=== PATIENT | female | born 1960 | race Caucasian/White ===

== ENCOUNTER 2017-01-12 14:34 | Inpatient (IN) | payer OTHER ==
[~2017-01-12] VITALS: Ht 165.1 cm; Wt 57.8 kg
[2017-01-12] VITALS (19 sets, daily range): BP systolic 90–125; BP diastolic 34–71
--- OUTSIDE RECORDS SUMMARY | 2017-01-12 15:07 | External Medical Summary Rpt | CCD ---
Author Author , TERE Organization TERE Address Unknown Phone [email or web address] Purpose Continuity of Care Document - 01-12-2017 through 2016 Results Labs Lab Lab Date Result Refere Interp Status Commen Order Detail nces retati t Range on CBC w auto diff (01-12-2017 09:43) Automat = 0.0 0-0.2 complet ed 017 K/MM3 ed blood 09:43 basophi l count (count/ vo Baso % = 0.5 % 0.1-2.0 complet 017 ed 09:43 Automat = 0.1 0.0-0.4 complet ed 017 K/mm3 ed blood 09:43 eosinop hil count Automat = 1.0 % 0.1-12. complet ed 017 0 ed blood 09:43 eosinop hils/10 0 leukocy t Blood = 4.1 1.8-7.8 complet granulo 017 K/mm3 ed cytes 09:43 automat ed count (numb Granulo = 60.1 37.0-80 complet cyte 017 % .0 ed percent 09:43 age Blood = 19.7 37.0-47 complet hematoc 017 % .0 ed rit 09:43 (volume fractio n) Comment: CRITICAL RESULTS Comment: RESULTS CALLED TO: HERO CASTRO Comment: 01/12/17 1358 KhalidaBobbi Blood = 5.8 12.2-16 complet hemoglo 017 g/dL .2 ed bin 09:43 measure ment (mass/v olum Comment: CRITICAL RESULTS Comment: RESULTS CALLED TO: HERO CASTRO Comment: 01/12/17 1356 Boykrystle,Bobbi Absolut = 2.3 0.7-4.5 complet e 017 K/mm3 ed lymphoc 09:43 yte count Lymphoc = 34.0 10-50.0 complet yte 017 % ed count, 09:43 blood, automat ed Mean = 24.2 27-31.2 complet corpusc 017 pg ed ular 09:43 hemoglo bin (MCH) determ Automat = 28.9 31.8-35 complet ed 017 g/dl .4 ed erythro 09:43 cyte mean corpusc ular h Automat = 83.9 82.2-97 complet ed 017 fl .8 ed erythro 09:43 cyte mean corpusc ular v Absolut = 0.3 0.1-1.0 complet e 017 K/mm3 ed monocyt 09:43 e count [place] % = 4.4 % 1.7-9.3 complet 017 ed 09:43 Automat = 8.5 7.4-10. complet ed 017 fl 4 ed blood 09:43 platele t mean volume brenda Blood = 284 142-424 complet platele 017 K/mm3 ed t count 09:43 Red = 2.39 4.2-5.4 complet blood 017 M/mm3 ed cell 09:43 count Automat = 17.5 11.5-17 complet ed 017 % .5 ed erythro 09:43 cyte distrib ution width Blood = 6.9 4.8-10. complet leukocy 017 K/MM3 8 ed kaitlynn 09:43 count (number /volume )
--- OUTSIDE RECORDS SUMMARY | 2017-01-12 15:07 | External Medical Summary Rpt | CCD ---
Demographics Preferred Language Spanish Marital Status Unknown Jew Affiliation Unknown Race Unknown Ethnic Group Unknown Author Author , TERE CARRANZA Address Unknown Phone Immunization No patient found.
--- OUTSIDE RECORDS SUMMARY | 2017-01-12 15:07 | External Medical Summary Rpt | CCD ---
Author Author [employer] Organization [employer] Address Unknown Phone Unavailable Purpose Continuity of Care Document - through 2016
--- OUTSIDE RECORDS SUMMARY | 2017-01-12 15:07 | External Medical Summary Rpt | CCD ---
Demographics Preferred Language Faroese Marital Status Unknown Scientologist Affiliation Unknown Race Unknown Ethnic Group Unknown Author Author , TERE CARRANZA Address Unknown Phone Immunization No patient found.
--- OUTSIDE RECORDS SUMMARY | 2017-01-12 15:07 | External Medical Summary Rpt | CCD ---
Author Author , TERE Organization TERE Address Unknown Phone [email or web address] Purpose Continuity of Care Document - 01-12-2017 [...] 017 K/mm3 ed monocyt 09:43 e count [place] % = 4.4 % 1.7-9.3 complet 017 [...]
[2017-01-12 15:24] LABS: LYMPH # 2.4 K/mm3 (0.7-4.5); LYMPH % 41.4 % (10-50.0)
--- NOTE | 2017-01-12 15:29 | Emergency Room Report ---
History of Present Illness Time Seen by [id number] Presenting Problem in Triage Pt arrived:Walked Presenting Problem:LOW BLOOD COUNT, SENT BY PCP FOR BLOOD ADMIN Onset of symptoms date/time:/ or onset unknown for:MEDICAL HX UNKNOWN Treatment Prior to Arrival: RN TRANSITIONAL CARE Provided by: Sepsis Risk Assessment: Temp: 97.9 B/P: 125/67 MAP: 86 Pulse: 97 Resp: 18 Recent fever? N Clinical Suspician of Infection? N Mental Status: 1 - Regular (Normal Baseline) Sepsis Risk:Low Sepsis Risk Have you (or family members/close friends) recently traveled outside the [place]? N If Yes, where/when: Have you had exposure to infectious disease within the past month? TB? Other? Specify: Comment The patient complains of vaginal bleeding and anemia. She says that in January of last year she thought she was going through menopause because she had mood swings and hot flashes, but never stopped the bleeding. She has had normal periods until August of this year when she started having very heavy bleeding. Her prior primary care physician had relocated and she did not have a physician. She was seen at [facility] today for her initial visit. They did blood work and found her to be very anemic and sent her here for admission. She complains of feeling lightheaded for the past month, worse today. She is had some shortness of breath with exertion. She had some pelvic cramping with her bleeding a month ago followed by some chest pain, but no chest pain since then. No history of cardiac disease. She has had a blood transfusion from trauma in the past. ALLERGIES Coded Allergies: Penicillins (Mild, 01/12/17) cephalexin (From KEFLEX) (Mild, 01/12/17) Home Medications Reported Medications IRON (Iron) 65 MG PO DAILY Lutein/Zeaxanthin (Lutein-Zeaxanthin 25-5 MG Sfgl) 1 EACH PO DAILY [ESTRIGEN] 1 TAB PO DAILY History Medical History General CAD? No Angina: No NH: Yes Hypertension? No Hyperlipidemia? No CHF? No DVT? No PE? No COPD? No Asthma? No Anemia? Yes GERD? No Gastric ulcers? No GI Bleed? No Hernia? No Thyroid Problems? No CVA? No Seizures? No Diabetes? No Renal Insuffiency? No Hepatitis? No Arthritis? Yes Anxiety? No Depression? No Cancer? 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 Social History Smoking Hx Smoker: Never Smoker Tobacco: No Type N/A Are you/the child exposed to second-hand smoke: No Alcohol Alcohol: No Review of Systems All Other Systems Reviewed and Negative Physical Exam Vital Signs Vital Signs Date Time Temp Pulse Resp B/P Pulse O2 O2 Flow FiO2 Ox Delivery Rate 01/12 1641 98.5 89 20 118/62 100 ROOM AIR 01/12 1639 98.5 82 18 121/85 99 01/12 1442 97.9 97 18 125/67 98 General Appearance no apparent distress, pallor Eye Exam - bilateral eye PERRL, bilateral eye EOMI Comment Pallor Ear, Nose, Throat hearing grossly normal, normal ENT inspection Neck normal inspection, non-tender, supple, full range of motion Respiratory Status Yes: trachea midline, chest symmetrical. No: respiratory distress. Lung Sounds bilateral: normal breath sounds, lungs clear. Cardiovascular normal exam, regular rate/rhythm, no peripheral edema, no gallop, no JVD, no murmur, no rub, normal peripheral pulses Peripheral Pulses Pulses normal Yes Gastrointestinal normal bowel sounds, normal exam, non tender, soft, no organomegaly Extremities normal inspection Neurologic alert, normal exam, oriented x 3 Mental status normal mood/affect Skin intact, normal color, warm/dry Medical Decision Making LABS/Meds/Orders Pt receiving controlled substance in ED? No Results/Orders Laboratory Tests 01/12/17 1643: Antibody Screen NEGATIVE, Miscellaneous Test NEGATIVE 01/12/17 1450: Sodium 139, Potassium 3.4 L, Chloride 105, Carbon Dioxide 26, BUN 19 H, Creatinine 0.8, Estimated Creat Clear 74, Estimated GFR (MDRD) 74, Glucose 111 H, Calcium 8.5, Total Bilirubin 0.2, AST 14 L, ALT 16, Alkaline Phosphatase 53, Total Protein 6.5, Albumin 3.2 L, Globulin 3.3 H, Albumin/Globulin Ratio 1.0 L, WBC 5.9, RBC 2.40 L, Hgb 5.7 *L, Hct 19.9 *L, MCV 83.1, RDW 17.7 H, Plt Count 306, MPV 7.9, Gran % 49.1, Gran # 2.9, Lymphocytes % 41.4, Monocytes % 5.9 , Eosinophils % 2.7, Basophils % 0.9, Lymphocytes # 2.4, Monocytes # 0.4, Eosinophils # 0.2, Basophils # 0.1, PUBS MCHC 28.5 L, MCH 23.6 L Current Medication Orders Sig/Mira Start time Last Medication Dose Route Stop Time Status Admin Ferrous Sulfate 325 MG DAILY 01/13 0900 UNV PO Influenza Virus 0.5 ML PRN PRN 01/12 161 AC Vaccine Quadrival IM Nicotine 21 MG DAILYP PRN 01/12 161 AC TD Sodium Chloride 10 ML PRN PRN 01/12 161 AC IV Sodium Chloride 10 ML PRN PRN 01/12 1515 AC IV 01/13 1511 Orders Procedure Date/time Status CBC WITH AUTO DIFF 01/13 0600 Active DIET-REGULAR ( TOLERATED) 01/12 D Active ADMITTED PT IS ACTUALLY IN BED 01/12 1642 Active Decision to admit 01/12 1528 Active IV SALINE LOCK 01/12 1511 Active CBC WITH AUTO DIFF 01/12 1511 Complete CHEM 12 PROFILE 01/12 151 Complete ADMIT PATIENT 01/12 UNK Active VITAL SIGNS 01/12 UNK Active POM NURSE YUSUF WANG ORDER 01/12 UNK Active IV SALINE LOCK 01/12 UNK Active GEN NSG/PT REQ (NOT FOR MEDS!) 01/12 UNK Active CODE STATUS 01/12 UNK Active BLOOD TRANSFUSION ORDER 01/12 UNK Active PATIENT ACTIVITY ORDER 01/12 UNK Active TYPE FOR CROSSMATCH 01/12 UNK Complete PHYSICIANS CONSULT 01/12 UNK Active Progress - 3:30 PM: I have discussed the case with Dr. Craig who agrees to admit the patient to the hospital. We discussed the patient's clinical information, including history, exam, laboratory and radiology results and ED course. Per hospital procedure, I will write temporary bridge inpatient orders on the patient. Specific orders requested by the admitting physician: Consult gynecology (the patient's primary care provider already spoke with Dr. Valladares). Transfuse 2 units and keep 2 more units on hold. Departure Departure Disposition Still a Patient Clinical Impression Primary Impression: Anemia due to blood loss, acute Secondary Impressions: Menorrhagia Qualifiers: Menorrahagia type: with irregular cycle Qualified Code: N92.1 - Excessive and frequent menstruation with irregular cycle Condition STABLE Referrals FERMIN BLOUNT (Family) ED Critical Care Critical Care No at 184
[2017-01-12 15:59] LABS: HEMOGLOBIN 5.7 g/dL (12.2-16.2)
--- OUTSIDE RECORDS SUMMARY | 2017-01-12 16:07 | External Medical Summary Rpt | CCD ---
Author Author , TERE Organization [facility] Address Unknown Phone [email or web address] Purpose Continuity of Care Document - 01-12-2017 through 2016 Results Labs Lab Lab Date Result Refere Interp Status Commen Order Detail nces retati t Range on Comprehensive metabolic panel (01-12-2017 14:50) Serum = 1.0 1.1-1.8 complet or 017 ed plasma 14:50 albumin /globul in mass ra Serum = 3.2 3.4-5.0 complet or 017 gm/dL ed plasma 14:50 albumin measure ment (mas Serum = 53 46-116 complet or 017 U/L ed plasma 14:50 alkalin e phospha tase brenda Serum = 0.2 0.2-1.0 complet or 017 mg/dL ed plasma 14:50 total bilirub in measure m Serum = 19 7-18 complet or 017 mg/dL ed plasma 14:50 urea nitroge n measure men Serum = 8.5 8.5-10. complet or 017 mg/dL 1 ed plasma 14:50 calcium measure ment (mas Serum = 105 98-107 complet or 017 mmoL/L ed plasma 14:50 chlorid e measure ment (mo Carbon = 26 21.0-32 complet dioxide 017 mmoL/L .0 ed 14:50 measure ment Serum = 0.8 0.55-1. complet or 017 mg/dL 02 ed plasma 14:50 creatin ine measure ment ( Estimat = 74 50-200 complet ion of 017 ML/MIN ed creatin 14:50 ine renal clearan ce Estimat = 74 59- complet ed 017 ML/MIN ed glomeru 14:50 lar filtrat ion rate (GF Comment: REFERENCE RANGE: >60 ML/MIN/1.73 SQUARE METERS Comment: If this patient is -[place]ren[place], then multiply the Comment: result by 1.210. Serum = 3.3 1.3-3.2 complet globuli 017 gm/dL ed n 14:50 measure ment (mass/v olume) Serum = 111 74-106 complet or 017 mg/dL ed plasma 14:50 glucose measure ment (mas Serum = 3.4 3.5-5.1 complet potassi 017 mmoL/L ed um 14:50 measure ment Serum = 139 136-145 complet sodium 017 mmoL/L ed measure 14:50 ment Serum = 14 15-37 complet or 017 U/L ed plasma 14:50 asparta te aminotr ansfera ALT = 16 12-78 complet (SGPT) 017 U/L ed ser/ramila 14:50 s Protein = 6.5 6.4-8.2 complet total 017 gm/dL ed ser/ramila 14:50 s CBC w auto diff (01-12-2017 14:50) Automat = 0.1 0-0.2 complet ed 017 K/MM3 ed blood 14:50 basophi l count (count/ vo Baso % = 0.9 % 0.1-2.0 complet 017 ed 14:50 Automat = 0.2 0.0-0.4 complet ed 017 K/mm3 ed blood 14:50 eosinop hil count Automat = 2.7 % 0.1-12. complet ed 017 0 ed blood 14:50 eosinop hils/10 0 leukocy t Blood = 2.9 1.8-7.8 complet granulo 017 K/mm3 ed cytes 14:50 automat ed count (numb Granulo = 49.1 37.0-80 complet cyte 017 % .0 ed percent 14:50 age Blood = 19.9 37.0-47 complet hematoc 017 % .0 ed rit 14:50 (volume fractio n) Comment: CRITICAL RESULTS Comment: RESULTS CALLED TO: KALEE.EAL 01/12/17 1527 Ayde Sandoval Blood = 5.7 12.2-16 complet hemoglo 017 g/dL .2 ed bin 14:50 measure ment (mass/v olum Comment: CRITICAL RESULTS Comment: RESULTS CALLED TO: EVELYN 01/12/17 1527 Ayde Sandoval Absolut = 2.4 0.7-4.5 complet e 017 K/mm3 ed lymphoc 14:50 yte count Lymphoc = 41.4 10-50.0 complet yte 017 % ed count, 14:50 blood, automat ed Mean = 23.6 27-31.2 complet corpusc 017 pg ed ular 14:50 hemoglo bin (MCH) determ Automat = 28.5 31.8-35 complet ed 017 g/dl .4 ed erythro 14:50 cyte mean corpusc ular h Automat = 83.1 82.2-97 complet ed 017 fl .8 ed erythro 14:50 cyte mean corpusc ular v Absolut = 0.4 0.1-1.0 complet e 017 K/mm3 ed monocyt 14:50 e count [place] % = 5.9 % 1.7-9.3 complet 017 ed 14:50 Automat = 7.9 7.4-10. complet ed 017 fl 4 ed blood 14:50 platele t mean volume brenda Blood = 306 142-424 complet platele 017 K/mm3 ed t count 14:50 Red = 2.40 4.2-5.4 complet blood 017 M/mm3 ed cell 14:50 count Automat = 17.7 11.5-17 complet ed 017 % .5 ed erythro 14:50 cyte distrib ution width Blood = 5.9 4.8-10. complet leukocy 017 K/MM3 8 ed kaitlynn 14:50 count (number /volume ) Comprehensive metabolic panel (01-12-2017 09:43) Serum 10-31-2 = 1.2 1.1-1.8 complet or 017 ed plasma 09:43 albumin /globul in mass ra Serum = 3.6 3.4-5.0 complet or 017 gm/dL ed plasma 09:43 albumin measure ment (mas Serum = 53 46-116 complet or 017 U/L ed plasma 09:43 alkalin e phospha tase brenda Serum = 0.2 0.2-1.0 complet or 017 mg/dL ed plasma 09:43 total bilirub in measure m Serum = 22 7-18 complet or 017 mg/dL ed plasma 09:43 urea nitroge n measure men Serum = 9.0 8.5-10. complet or 017 mg/dL 1 ed plasma 09:43 calcium measure ment (mas Serum = 101 98-107 complet or 017 mmoL/L ed plasma 09:43 chlorid e measure ment (mo Carbon = 25 21.0-32 complet dioxide 017 mmoL/L .0 ed 09:43 measure ment Serum = 0.8 0.55-1. complet or 017 mg/dL 02 ed plasma 09:43 creatin ine measure ment ( Estimat = 74 59- complet ed 017 ML/MIN ed glomeru 09:43 lar filtrat ion rate (GF Comment: REFERENCE RANGE: >60 ML/MIN/1.73 SQUARE METERS Comment: If this patient is -Grenadian, then multiply the Comment: result by 1.210. Serum = 3.0 1.3-3.2 complet globuli 017 gm/dL ed n 09:43 measure ment (mass/v olume) Serum = 100 74-106 complet or 017 mg/dL ed plasma 09:43 glucose measure ment (mas Serum = 4.1 3.5-5.1 complet potassi 017 mmoL/L ed um 09:43 measure ment Serum = 135 136-145 complet sodium 017 mmoL/L ed measure 09:43 ment Serum = 15 15-37 complet or 017 U/L ed plasma 09:43 asparta te aminotr ansfera ALT = 15 12-78 complet (SGPT) 017 U/L ed ser/ramila 09:43 s Protein = 6.6 6.4-8.2 complet total 017 gm/dL ed ser/ramila 09:43 s CBC w auto diff (01-12-2017 09:43) Blood = 6.9 4.8-10. complet leukocy 017 K/MM3 8 ed kaitlynn 09:43 count (number /volume ) Automat = 17.5 11.5-17 complet ed 017 % .5 ed erythro 09:43 cyte distrib ution width Red = 2.39 4.2-5.4 complet blood 017 M/mm3 ed cell 09:43 count Blood = 284 142-424 complet platele 017 K/mm3 ed t count 09:43 Automat = 8.5 7.4-10. complet ed 017 fl 4 ed blood 09:43 platele t mean volume brenda [place] % = 4.4 % 1.7-9.3 complet 017 ed 09:43 Absolut = 0.3 0.1-1.0 complet e 017 K/mm3 ed monocyt 09:43 e count Automat = 83.9 82.2-97 complet ed 017 fl .8 ed erythro 09:43 cyte mean corpusc ular v Automat = 28.9 31.8-35 complet ed 017 g/dl .4 ed erythro 09:43 cyte mean corpusc ular h Mean = 24.2 27-31.2 complet corpusc 017 pg ed ular 09:43 hemoglo bin (MCH) determ Lymphoc = 34.0 10-50.0 complet yte 017 % ed count, 09:43 blood, automat ed Absolut = 2.3 0.7-4.5 complet e 017 K/mm3 ed lymphoc 09:43 yte count Blood = 5.8 12.2-16 complet hemoglo 017 g/dL .2 ed bin 09:43 measure ment (mass/v olum Comment: CRITICAL RESULTS Comment: RESULTS CALLED TO: HERO CASTRO Comment: 01/12/17 1356 Bobbi Gaxiola Blood = 19.7 37.0-47 complet hematoc 017 % .0 ed rit 09:43 (volume fractio n) Comment: CRITICAL RESULTS Comment: RESULTS CALLED TO: HERO CASTRO Comment: 01/12/17 1358 Bobbi Gaxiola Granulo = 60.1 37.0-80 complet cyte 017 % .0 ed percent 09:43 age Blood = 4.1 1.8-7.8 complet granulo 017 K/mm3 ed cytes 09:43 automat ed count (numb Automat = 1.0 % 0.1-12. complet ed 017 0 ed blood 09:43 eosinop hils/10 0 leukocy t Automat = 0.1 0.0-0.4 complet ed 017 K/mm3 ed blood 09:43 eosinop hil count Baso % = 0.5 % 0.1-2.0 complet 017 ed 09:43 Automat = 0.0 0-0.2 complet ed 017 K/MM3 ed blood 09:43 basophi l count (count/ vo Serum or plasma ferritin measurement (wa (01-12-2017 09:43) Serum = 11 8-388 complet or 017 ng/mL ed plasma 09:43 ferriti n measure ment (wa Lipid profile (01-12-2017 09:43) Total = 142 < 200 complet cholest 017 mg/dL ed dwight 09:43 measure ment Serum = 64.0 40-60 complet or 017 MG/DL ed plasma 09:43 cholest dwight in HDL measu Serum = 58.4 0-130 complet or 017 mg/dL ed plasma 09:43 cholest dwight in LDL measu Serum = 98 30-200 complet or 017 mg/dL ed plasma 09:43 triglyc eride measure ment Serum = 19.6 0-40 complet or 017 ed plasma 09:43 cholest dwight in VLDL golden Serum or plasma thyroid stimulating horm (01-12-2017 09:43) Serum = 2.05 0.358-3 complet or 017 uIU/ml .740 ed plasma 09:43 thyroid stimula ting horm
--- OUTSIDE RECORDS SUMMARY | 2017-01-12 16:07 | External Medical Summary Rpt | CCD ---
Author Author , TERE Organization [facility] Address Unknown Phone [email or web address] Purpose Continuity of Care Document - 01-12-2017 [...] SQUARE METERS Comment: If this patient is -[place], then multiply the Comment: result by 1.210. [...] 017 K/mm3 ed monocyt 14:50 e count [place] % = 5.9 % 1.7-9.3 complet 017 [...] SQUARE METERS Comment: If this patient is -[place], then multiply the Comment: result by 1.210. [...] blood 09:43 platele t mean volume brenda [place] % = 4.4 % 1.7-9.3 complet 017 [...] (count/ vo Serum or plasma ferritin measurement (ny (01-12-2017 09:43) Serum = 11 8-388 complet or 017 ng/mL ed plasma 09:43 ferriti n measure ment (ny Lipid profile (01-12-2017 09:43) Total = 142 [...]
--- OUTSIDE RECORDS SUMMARY | 2017-01-12 16:08 | External Medical Summary Rpt | CCD ---
Demographics Preferred Language Latvian Marital Status Unknown Advent Affiliation Unknown Race Unknown Ethnic Group Unknown Author Author , TERE CARRANZA Address Unknown Phone Immunization No patient found.
--- OUTSIDE RECORDS SUMMARY | 2017-01-12 16:08 | External Medical Summary Rpt ---
Author Author [employer], [employer] Organization [employer] Address Unknown Phone Unavailable Results Comprehensive metabolic 2000 panel in Serum or Plasma Observa Value Referen Units Interpr Notes Date tion ce etation Range Albumin/G 1.1 - 1.8 No Low No Jan 12 lobulin informati informati 2017 2:50 [Mass on in on in PM ratio] in source source Serum or data data Plasma Albumin 3.4 - 5.0 gm/dL Low No Jan 12 [Mass/vol informati 2017 2:50 ume] in on in PM Serum or source Plasma data Alkaline 46 - 116 U/L Normal No Jan 12 phosphata informati 2017 2:50 se on in PM [Enzymati source c data activity/ volume] in Serum or Plasma Bilirubin 0.2 - 1.0 mg/dL Normal No Jan 12 .total informati 2016 2:50 [Mass/vol on in PM ume] in source Serum or data Plasma Urea 7 - 18 mg/dL High No Jan 12 nitrogen informati 2016 2:50 [Mass/vol on in PM ume] in source Serum or data Plasma Calcium 8.5 - mg/dL Normal No Jan 12 [Mass/vol 10.1 informati 2017 2:50 ume] in on in PM Serum or source Plasma data Chloride 98 - 107 mmoL/L Normal No Jan 12 [Moles/vo informati 2016 2:50 lume] in on in PM Serum or source Plasma data Carbon 21.0 - mmoL/L Normal No Jan 12 dioxide, 32.0 informati 2017 2:50 total on in PM [Moles/vo source lume] in data Serum or Plasma Creatinin 0.55 - mg/dL Normal No Jan 12 e 1.02 informati 2017 2:50 [Mass/vol on in PM ume] in source Serum or data Plasma Creatinin 50 - 200 ML/MIN Normal No Jan 12 e renal informati 2017 2:50 clearance on in PM source predicted data by Cockcroft -Gault formula Estimated 59- ML/MIN No REFERENCE Jan 12 informati RANGE: 2017 2:50 glomerula on in >60 PM r source ML/MIN/1. filtratio data 73 SQUARE n rate METERSIf (GF this patient is -A merican, then multiply theresult by 1.210. Globulin 1.3 - 3.2 gm/dL High No Jan 12 [Mass/vol informati 2016 2:50 ume] in on in PM Serum source data Glucose 74 - 106 mg/dL High No Jan 12 [Mass/vol informati 2016 2:50 ume] in on in PM Serum or source Plasma data Potassium 3.5 - 5.1 mmoL/L Low No Jan 12 informati 2016 2:50 [Moles/vo on in PM lume] in source Serum or data Plasma Sodium 136 - 145 mmoL/L Normal No Jan 12 [Moles/vo informati 2017 2:50 lume] in on in PM Serum or source Plasma data Aspartate 15 - 37 U/L Low No Jan 12 informati 2016 2:50 aminotran on in PM sferase source [Enzymati data c activity/ volume] in Serum or Plasma Alanine 12 - 78 U/L Normal No Jan 12 aminotran informati 2017 2:50 sferase on in PM [Enzymati source c data activity/ volume] in Serum or Plasma Protein 6.4 - 8.2 gm/dL Normal No Jan 12 [Mass/vol informati 2016 2:50 ume] in on in PM Serum or source Plasma data Comprehensive metabolic 2000 panel in Serum or Plasma Observa Value Referen Units Interpr Notes Date tion ce etation Range Albumin/G 1.1 - 1.8 No Normal No Jan 12 lobulin informati informati 2016 9:43 [Mass on in on in AM ratio] in source source Serum or data data Plasma Albumin 3.4 - 5.0 gm/dL Normal No Jan 12 [Mass/vol informati 2017 9:43 ume] in on in AM Serum or source Plasma data Alkaline 46 - 116 U/L Normal No Jan 12 phosphata informati 2016 9:43 se on in AM [Enzymati source c data activity/ volume] in Serum or Plasma Bilirubin 0.2 - 1.0 mg/dL Normal No Jan 12 .total informati 2017 9:43 [Mass/vol on in AM ume] in source Serum or data Plasma Urea 7 - 18 mg/dL High No Jan 12 nitrogen informati 2017 9:43 [Mass/vol on in AM ume] in source Serum or data Plasma Calcium 8.5 - mg/dL Normal No Jan 12 [Mass/vol 10.1 informati 2016 9:43 ume] in on in AM Serum or source Plasma data Chloride 98 - 107 mmoL/L Normal No Jan 12 [Moles/vo informati 2016 9:43 lume] in on in AM Serum or source Plasma data Carbon 21.0 - mmoL/L Normal No Jan 12 dioxide, 32.0 informati 2016 9:43 total on in AM [Moles/vo source lume] in data Serum or Plasma Creatinin 0.55 - mg/dL Normal No Jan 12 e 1.02 informati 2016 9:43 [Mass/vol on in AM ume] in source Serum or data Plasma Estimated 59- ML/MIN No REFERENCE Jan 12 informati RANGE: 2017 9:43 glomerula on in >60 AM r source ML/MIN/1. filtratio data 73 SQUARE n rate METERSIf (GF this patient is -A merican, then multiply theresult by 1.210. Globulin 1.3 - 3.2 gm/dL Normal No Jan 12 [Mass/vol informati 2016 9:43 ume] in on in AM Serum source data Glucose 74 - 106 mg/dL Normal No Jan 12 [Mass/vol informati 2016 9:43 ume] in on in AM Serum or source Plasma data Potassium 3.5 - 5.1 mmoL/L Normal No Jan 12 informati 2016 9:43 [Moles/vo on in AM lume] in source Serum or data Plasma Sodium 136 - 145 mmoL/L Low No Jan 12 [Moles/vo informati 2016 9:43 lume] in on in AM Serum or source Plasma data Aspartate 15 - 37 U/L Normal No Jan 12 informati 2016 9:43 aminotran on in AM sferase source [Enzymati data c activity/ volume] in Serum or Plasma Alanine 12 - 78 U/L Normal No Jan 12 aminotran informati 2016 9:43 sferase on in AM [Enzymati source c data activity/ volume] in Serum or Plasma Protein 6.4 - 8.2 gm/dL Normal No Jan 12 [Mass/vol informati 2016 9:43 ume] in on in AM Serum or source Plasma data Ferritin [Mass/volume] in Serum or Plasma Observa Value Referen Units Interpr Notes Date tion ce etation Range Ferritin 8 - 388 ng/mL Normal No Jan 12 [Mass/vol informati 2017 9:43 ume] in on in AM Serum or source Plasma data Lipid 1996 panel in Serum or Plasma Observa Value Referen Units Interpr Notes Date tion ce etation Range Cholester < 200 mg/dL No No Jan 12 ol informati informati 2016 9:43 [Moles/vo on in on in AM lume] in source source Unspecifi data data ed specimen Cholester 40 - 60 MG/DL High No Jan 12 ol in HDL informati 2016 9:43 on in AM [Mass/vol source ume] in data Serum or Plasma Cholester 0 - 130 mg/dL Normal No Jan 12 ol in LDL informati 2016 9:43 on in AM [Mass/vol source ume] in data Serum or Plasma by calculati on Triglycer 30 - 200 mg/dL Normal No Jan 12 sindi informati 2016 9:43 [Moles/vo on in AM lume] in source Serum or data Plasma Cholester 0 - 40 No Normal No Jan 12 ol in informati informati 2016 9:43 VLDL on in on in AM [Mass/vol source source ume] in data data Serum or Plasma Thyrotropin [Units/volume] in Serum or Plasma Observa Value Referen Units Interpr Notes Date tion ce etation Range Thyrotrop 0.358 - uIU/ml Normal No Jan 12 in 3.740 informati 2016 9:43 [Units/vo on in AM lume] in source Serum or data Plasma CBC W Auto Differential panel in Blood Observa Value Referen Units Interpr Notes Date tion ce etation Range Basophils 0 - 0.2 K/MM3 Normal No Jan 12 informati 2016 9:43 [#/volume on in AM ] in source Blood by data Automated count Basophils 0.1 - 2.0 % Normal No Jan 12 / informati 2017 9:43 leukocyte on in AM s in source Blood by data Automated count Eosinophi 0.0 - 0.4 K/mm3 Normal No Jan 12 ls informati 2016 9:43 [#/volume on in AM ] in source Blood by data Automated count Eosinophi 0.1 - % Normal No Jan 12 ls/100 12.0 informati 2016 9:43 leukocyte on in AM s in source Blood by data Automated count Granulocy 1.8 - 7.8 K/mm3 Normal No Jan 12 kaitlynn informati 2016 9:43 [#/volume on in AM ] in source Blood by data Automated count Granulocy 37.0 - % Normal No Jan 12 kaitlynn/100 80.0 informati 2017 9:43 leukocyte on in AM s in source Blood by data Automated count Hematocri 37.0 - % Low alert Jan 12 t [Volume 47.0 2017 9:43 CRITICAL AM Fraction] RESULTS of Blood RESU LTS CALLED TO: HERO ELIZABETH [address] Hemoglobi 12.2 - g/dL Low alert Jan 12 n 16.2 2016 9:43 [Mass/vol CRITICAL AM ume] in RESULTS Blood RESU LTS CALLED TO: HERO SALDANA [address] Lymphocyt 0.7 - 4.5 K/mm3 Normal No Jan 12 es informati 2016 9:43 [#/volume on in AM ] in source Unspecifi data ed specimen by Automated count Lymphocyt 10 - 50.0 % Normal No Jan 12 es informati 2016 9:43 [#/volume on in AM ] in source Unspecifi data ed specimen by Automated count Erythrocy 27 - 31.2 pg Low No Jan 12 te mean informati 2016 9:43 corpuscul on in AM ar source hemoglobi data n [Entitic mass] Erythrocy 31.8 - g/dl Low No Jan 12 te mean 35.4 informati 2016 9:43 corpuscul on in AM ar source hemoglobi data n concentra tion [Mass/vol ume] by Automated count Erythrocy 82.2 - fl Normal No Jan 12 te mean 97.8 informati 2016 9:43 corpuscul on in AM ar volume source [Entitic data volume] by Automated count Monocytes 0.1 - 1.0 K/mm3 Normal No Jan 12 informati 2016 9:43 [#/volume on in AM ] in source Blood by data Automated count Monocytes 1.7 - 9.3 % Normal No Jan 12 informati 2017 9:43 leukocyte on in AM s in source Blood by data Automated count Platelet 7.4 - fl Normal No Jan 12 mean 10.4 informati 2017 9:43 volume on in AM [Entitic source volume] data in Blood by Automated count Platelets 142 - 424 K/mm3 Normal No Jan 12 informati 2017 9:43 [#/volume on in AM ] in source Blood data Erythrocy 4.2 - 5.4 M/mm3 Low No Jan 12 kaitlynn informati 2017 9:43 [#/volume on in AM ] in source Amniotic data fluid Erythrocy 11.5 - % Normal No Jan 12 te 17.5 informati 2017 9:43 distribut on in AM ion width source [Entitic data volume] by Automated count Leukocyte 4.8 - K/MM3 Normal No Jan 12 s 10.8 informati 2017 9:43 [#/volume on in AM ] in source Blood data
--- OUTSIDE RECORDS SUMMARY | 2017-01-12 16:08 | External Medical Summary Rpt | CCD ---
Demographics Preferred Language Tajik Marital Status Unknown Christianity Affiliation Unknown Race Unknown Ethnic Group Unknown Author Author , TERE CARRANZA Address Unknown Phone Immunization No patient found.
--- OUTSIDE RECORDS SUMMARY | 2017-01-12 16:08 | External Medical Summary Rpt ---
Author Author [employer] [employer], [employer] Organization [employer] Address Unknown Phone Unavailable [...]
--- NOTE | 2017-01-12 16:44 | HISTORY AND PHYSICAL REPORT ---
Demographics: Admit date: 01/12/17 Chief complaint: Anemia PRIMARY DIAGNOSIS: anemia from vaginal bleeding Allergies: Coded Allergies: Penicillins (Mild, 01/12/17) cephalexin (From KEFLEX) (Mild, 01/12/17) History of present illness: History of present illness: 56-year-old female presented to the emergency department after being sent here by primary care providers at the [facility] when she was found to be anemic. Patient presented to that office with complaints of dizziness and weakness. She also endorsed 4 months of irregular vaginal bleeding. Sometimes bleeding for 2 days a time sometimes bleeding for 9 days at a time. On Wednesday of this week she reported heavy vaginal bleeding going through 9 tampons and pads in a four-hour period. She notes irregularity of periods began about a year ago. Patient does not take any medications. She has a history of multiple D and Cs for miscarriages. She has been admitted for transfusion and gynecology consultation Past medical history: Family HX Family Hx Insignificant No Immunization HX DT/Tetanus > 10 Years Ago General CAD? No Angina: No VA: Yes Hypertension? No Hyperlipidemia? No CHF? No DVT? No PE? No COPD? No Asthma? No Anemia? Yes GERD? No Gastric ulcers? No GI Bleed? No Hernia? No Thyroid Problems? No CVA? No Seizures? No Diabetes? No Renal Insuffiency? No Hepatitis? No Arthritis? Yes Anxiety? No Depression? No Cancer? No Past Surgical HX Previous Surgery?Y CYST REMOVAL RT OVARY D&C X 6 HERNIA RT SIDE APPENDECTOMY Social Hx: Smoking HX Tobacco No Type N/A Are you/the child exposed to second-hand smoke: No Alcohol Alcohol: No Hx of Drug Use Drug Use? No Patien't marital status is Patient's support system is good Review of systems: Constitutional weakness. Respiratory no symptoms reported. Cardiovascular no symptoms reported Gastrointestinal/Abdominal no symptoms reported Genitourinary see HPI. Musculoskeletal no symptoms reported. Neurological Yes: no symptoms reported. Exam: Lab data for last 24 hours: Laboratory Tests 01/12/17 1450: Sodium 139, Potassium 3.4 L, Chloride 105, Carbon Dioxide 26, BUN 19 H, Creatinine 0.8, Estimated Creat Clear 74, Estimated GFR (MDRD) 74, Glucose 111 H, Calcium 8.5, Total Bilirubin 0.2, AST 14 L, ALT 16, Alkaline Phosphatase 53, Total Protein 6.5, Albumin 3.2 L, Globulin 3.3 H, Albumin/Globulin Ratio 1.0 L, WBC 5.9, RBC 2.40 L, Hgb 5.7 *L, Hct 19.9 *L, MCV 83.1, RDW 17.7 H, Plt Count 306, MPV 7.9, Gran % 49.1, Gran # 2.9, Lymphocytes % 41.4, Monocytes % 5.9 , Eosinophils % 2.7, Basophils % 0.9, Lymphocytes # 2.4, Monocytes # 0.4, Eosinophils # 0.2, Basophils # 0.1, PUBS MCHC 28.5 L, MCH 23.6 L Admission vital signs: 1ST Vital Signs Result Date Time Pulse Ox 98 01/12 144 B/P 125/67 01/12 144 Temp 97.9 01/12 144 Pulse 97 01/12 144 Resp 18 01/12 1442 Additional information: She is pale in appearance but pleasant. HEENT exam is grossly normal. Lungs are clear to auscultation. Heart has a regular rate and rhythm. Abdomen is soft and nontender. Patient's active range of motion all extremities. Neurologic exam is nonfocal. Plan: Problem List 1. Anemia due to blood loss, acute 2. Menorrhagia 3. Dysfunctional uterine bleeding Plan: 1. Patient be transfused 2 units of packed red blood cells and an additional 2 units is been placed on hold. Patient will be transfused to keep hemoglobin level above 8. 2. Gynecology consultation at 1643
[2017-01-12] MEDS ORDERED: LUTEIN-ZEAXANT1 EACH PO (16:55)
[2017-01-12] MEDS ORDERED: IRON90 MG PO (16:55)
[2017-01-12 18:43] LABS: ABO BLOOD TYPE A; RH BLOOD TYPE NEGATIVE
[2017-01-12 18:56] LABS: ANTIHUMAN GLOB CROSSMATCH COMPAT
[2017-01-12 18:57] LABS: ANTIHUMAN GLOB CROSSMATCH COMPAT
[2017-01-13] VITALS (16 sets, daily range): BP systolic 112–166; BP diastolic 60–88
[2017-01-13 01:32] LABS: HEMOGLOBIN 8.1 g/dL (12.2-16.2)
--- NOTE | 2017-01-13 06:22 | ACUTE CARE PROGRESS NOTE (QUA) ---
Progress Notes Subjective Date 01/13/17 Time 0619 Note Patient received 2 units of packed red blood cells overnight. Post transfusion hemoglobin was 8.1. Patient has been out of bed to the bathroom and notices improvement in her strength as well as symptom of dizziness. She did not have any dizziness upon ambulating. She's had used 3 pads or tampons overnight due to vaginal bleeding. Patient awakens easily. She still slightly pale appearing. Lungs are clear to auscultation. Heart has a regular rate and rhythm. Await gynecologic evaluation this morning. Await H and H this morning. If patient's hemoglobin has dropped any further she will be transfused an additional unit of blood. Objective Findings Last VS-Temp:98.6 B/P:131/77 Pulse:77 Resp:16 SaO2:99 ROOM AIR Last weight lbs:127 oz:6 K.777 Method:Bed Scales Laboratory Tests 01/13/17 0115: Hgb 8.1 L, Hct 26.5 L 01/12/17 2135: Misc Test Units BLOOD UNIT RELEASE 01/12/17 1923: Misc Test Units BLOOD UNIT RELEASE 01/12/17 1643: Antibody Screen NEGATIVE, Miscellaneous Test NEGATIVE 01/12/17 1450: Sodium 139, Potassium 3.4 L, Chloride 105, Carbon Dioxide 26, BUN 19 H, Creatinine 0.8, Estimated Creat Clear 74, Estimated GFR (MDRD) 74, Glucose 111 H, Calcium 8.5, Total Bilirubin 0.2, AST 14 L, ALT 16, Alkaline Phosphatase 53, Total Protein 6.5, Albumin 3.2 L, Globulin 3.3 H, Albumin/Globulin Ratio 1.0 L, WBC 5.9, RBC 2.40 L, Hgb 5.7 *L, Hct 19.9 *L, MCV 83.1, RDW 17.7 H, Plt Count 306, MPV 7.9, Gran % 49.1, Gran # 2.9, Lymphocytes % 41.4, Monocytes % 5.9 , Eosinophils % 2.7, Basophils % 0.9, Lymphocytes # 2.4, Monocytes # 0.4, Eosinophils # 0.2, Basophils # 0.1, PUBS MCHC 28.5 L, MCH 23.6 L Assessment/Plan Problem List 1. Anemia due to blood loss, acute 2. Menorrhagia Qualifiers: Menorrahagia type: with irregular cycle Qualified Code: N92.1 - Excessive and frequent menstruation with irregular cycle 3. Dysfunctional uterine bleeding Patient condition Stable Plan: continue current care, consult financial data analyst This inpt stay is expected to cross 2 MNs from start of care Yes at 0621
[2017-01-13 06:57] LABS: HEMOGLOBIN 8.3 g/dL (12.2-16.2); LYMPH # 2.3 K/mm3 (0.7-4.5); LYMPH % 40.2 % (10-50.0)
--- NOTE | 2017-01-13 07:17 | PHARMACY CLINIC NOTE ---
Patient Demographics Patient Demographics Admission date: 01/12/17 Date: 01/13/17 Time: 0716 Allergies Coded Allergies: Penicillins (Mild, 01/12/17) cephalexin (From KEFLEX) (Mild, 01/12/17) HEIGHT- FT: 5 IN: 5.00 K.777 VTE General Information Labs: Laboratory Tests 01/13 01/13 01/12 0621 0115 1450 Hematology Hgb (12.2 - 16.2 g/dL) 8.3 L 8.1 L 5.7 *L Hct (37.0 - 47.0 %) 26.6 L 26.5 L 19.9 *L Plt Count (142 - 424 K/mm3) 254 306 Disclaimer The following section includes nursing documentation that has been pulled in for pharmacy review. Patient's VTE score: 2 Patient's VTE Risk: VERY LOW RISK Clinical trial participant? No VTE prophylaxis [id number] VTE prophylaxis ordered? Yes Type of prophylaxis/treatment: YUSUF at 0716
--- NOTE | 2017-01-13 09:56 | RADIOLOGY REPORT PS360 ---
US PELVIS-TRANSVAGINAL ONLY HISTORY: Dysfunctional uterine bleeding, heavy cycles MENORRHAGIA,AMENIA ORDERING PHYSICIAN: Brant Craig MD PATIENT AGE: 56 years COMPARISON: None FINDINGS: UTERUS: The uterus measures 10 x 6 x 7 cm. Combined endometrial thickness is thickened at 29 mm. There is a 2 x 2 cm area of heterogeneous echogenicity along the anterior aspect of the uterine body consistent with a fibroid RIGHT OVARY: 3 x 3 cm and contains a 3 cm cyst LEFT OVARY: 3 x 2 cm. Unremarkable appearance CUL-DE-SAC FLUID: No cul-de-sac fluid apparent OTHER FINDINGS: None IMPRESSION: 1. Enlarged uterus with moderate thickening of the endometrium along with a uterine fibroid 2. 3 cm right ovarian cyst
[2017-01-13] MEDS ORDERED: NATURAL B COMPL PO (11:32)
[2017-01-13 14:14] LABS: HEMOGLOBIN 8.6 g/dL (12.2-16.2)
--- NOTE | 2017-01-13 14:18 | CONSULT NOTE ---
Standard Demographics Patient Demo Date of Consultation: 01/13/17 Referring Provider: Brant Craig MD Reason for Consultation: heavy vaginal bleeding PRIMARY DIAGNOSIS: anemia from vaginal bleeding Allergies: Coded Allergies: Penicillins (Mild, 01/13/17) cephalexin (From KEFLEX) (Mild, 01/13/17) History of Present Illness Chief Complaint: Heavy vaginal bleeding and weight loss History of Present Illness: This 56-year-old 6, para 0, AB 6 white female was admitted through the emergency room on the evening of 01/12/17 with heavy vaginal bleeding. She describes a 40 pound weight loss within the past 4 months (unintended). She has had 6 miscarriages, all followed by D and Cs, and no live births. She has never stopped bleeding, although she is age 56. Her bleeding is per, heavier in the last 2 months. When she was in the emergency room last night, her hemoglobin was 5.7 g. After transfusion of 2 units of packed cells it was 8.3 g this morning. She complains of RIGHT lower quadrant pain and cramping, and very heavy bleeding. An ultrasound this morning revealed an enlarged uterus with a leiomyoma evident, a 3.3 cm RIGHT ovarian cyst, and an endometrial stripe of 2.9 cm. Past Medical History Denies: CAD, congestive heart failure, COPD, hypertension, peptic ulcer disease, asthma, diabetes mellitus, GERD, renal insufficiency, seizure disorder, cancer, CVA, dementia, obesity, cirrhosis. Surgical History RIGHT ovarian cystectomy in 1981, 6 D and C's for miscarriages, Previous Surgery ?Y CYST REMOVAL RT OVARY D&C X 6 inguinal HERNIA RT SIDE APPENDECTOMY Allergies Coded Allergies: Penicillins (Mild, 01/13/17) cephalexin (From KEFLEX) (Mild, 01/13/17) Medications: Reported Medications [ESTROVEN MENOPAUSE] 1 CAP PO DAILY B COMPLEX WITH VITAMIN C (Super B Complex-Vitamin C) 1 TAB PO DAILY Lutein/Zeaxanthin (Lutein-Zeaxanthin 25-5 MG Sfgl) 1 EACH PO DAILY Discontinued Reported Medications IRON (Iron) 65 MG PO DAILY Family history Negative for: unknown. Smoking Hx Tobacco: No Smoker: Former Smoker Type: N/A Packs/day: N/A Are you/the child exposed to second-hand smoke: No Alcohol Alcohol: No Hx of Drug Use Drug Use? No Patien't marital status is Patient's support system is good Comment: D and C today. The patient understands risks and benefits of the procedure and understands the possible need for further surgery in the future (hysterectomy) Review of Systems Constitutional Positive for: fatigue, lethargy, weak, recent weight loss. No: chills, malaise. Physical Exam VS/I&O Vital Signs Date Time Temp Pulse Resp B/P Pulse O2 O2 Flow FiO2 Ox Delivery Rate 01/13 0803 97.9 68 16 134/70 99 01/13 0740 97.9 68 16 134/70 99 ROOM AIR 01/13 0430 98.6 77 16 131/77 99 ROOM AIR 01/13 0050 98.0 82 16 112/67 01/12 2350 98.1 68 16 96/51 01/12 2250 98.2 70 16 111/69 01/12 2235 98.2 85 16 109/67 01/12 2220 97.5 74 16 118/70 01/12 2205 98.1 72 18 109/64 01/12 2200 98.4 73 18 124/71 01/12 2155 98.2 71 18 116/68 01/12 2150 98.1 71 18 125/67 01/12 2125 98.4 70 18 116/71 01/12 2025 97.8 79 18 109/34 01/12 2010 97.5 76 16 98/62 01/12 195 98.3 78 16 90/54 01/12 1940 98.3 83 16 100/57 01/12 1935 98.0 89 16 99/59 01/12 1930 98.1 79 16 105/59 01/12 1930 98.1 79 16 105/59 100 01/12 1925 98.2 83 16 111/59 01/12 1708 98.5 89 20 118/62 01/12 1704 89 01/12 1704 100 ROOM AIR 01/12 1641 98.5 89 20 118/62 100 ROOM AIR 01/12 1639 98.5 82 18 121/85 99 01/12 1442 97.9 97 18 125/67 98 I&O 01/13 0700 Intake Total 1089 Output Total Balance 1089 Intake, IV 609 Intake, Oral 480 Patient 127 lb Weight Exam General appearance no acute distress, alert, oriented, well nourished Neck full ROM Respiratory clear to auscultation, no distress Cardiovascular regular rate and rhythm Abdomen flat (RIGHT lower quadrant scar), no hernia, no distention, no guarding, no rebound, soft Genitourinary (female) deferred Extremities moves all, no edema Lymphatic axilla normal Neurological normal speech, alert & oriented x 3 Psychiatric normal affect Skin normal color, poor skin turgor Findings/Data With the above findings, concern revolves around postmenopausal menometrorrhagia and the possibility of endometrial carcinoma. An ovarian cyst is also unusual at this age, and the leiomyoma is another possible cause of her bleeding. The 40 pound weight loss is also concerning. Plan is for D and C this afternoon, and possible further transfusion. She also understands the possible subsequent need for hysterectomy once diagnosis is confirmed. She understands and accepts the risks and benefits of the D and C. Plan Plan: The plan is for D and C this afternoon. The patient understands the risks and benefits of the procedure and understands that the purpose of the procedures to obtain tissue for diagnosis and to aid in cessation of her bleeding. She also understands the possible need for further surgery in the future (hysterectomy). at 1013
--- NOTE | 2017-01-13 15:02 | Anesthesia Record ---
Anesthesia Record Part I Total IV fluids: 300 EBL (ml): 10 Urine Output: 0 B/P: 106/62 % SaO2: 98 Pulse: 71 Resps: 18 Temp: 97.9 Patient is: Drowsy, Stable Stable to PACU at: 1500 at 1502
--- NOTE | 2017-01-13 15:03 | Anesthesia Record ---
Anesthesia Record Part II Discharge time: 1530 Destination: Second Floor PACU nurse assessment review? Yes Patient is: Stable Anesthesia complications? No at 1504
--- NOTE | 2017-01-13 15:08 | Operative Note ---
Procedure/Operative Record Date of Procedure: 01/13/17 Referring physician: Dr. Craig Pre-op diagnosis: 1. Postmenopausal bleeding with menometrorrhagia. 2.leiomyomata uteri. 3. Endometrial hyperplasia. 4. RIGHT ovarian cyst. Post-op diagnosis: 1. Postmenopausal bleeding with menometrorrhagia. 2. Leiomyomata uteri. 3. Endometrial hyperplasia. 4. RIGHT ovarian cyst. Procedure performed: Fractional dilatation and curettage. Surgeon: Mario Valladares Anesthesia: Gen., FLOOR PLAN ADJUSTER Brenden Indications: Postmenopausal bleeding with menometrorrhagia Description of procedure: After the patient was prepped and draped in usual fashion, and general anesthesia was administered, examination under anesthesia revealed a narrow introitus and a firm steroid uterus. The RIGHT ovarian cyst identified by ultrasound was not palpable. The LEFT adnexa was also not palpable. A weighted speculum was placed within the posterior fourchette of the vagina, and the anterior lip of the cervix was grasped with a single-tooth tenaculum. A small curette was introduced into the endocervix, with retrieval of a large amount of watery, fungoid tissue. The uterus is then sounded in an anterior direction to 9 cm, and easily admitted a number 20 Hegar dilator. A large sharp curette was introduced into the endometrial cavity, with retrieval of a very large amount of thick fungoid material. When it was felt that the cavity was clean, the instruments were removed. Sponge and needle counts were correct. Estimated blood loss was 200 mL. The patient tolerated the procedure well, and was taken to PACU in good condition. EBL (ml): 200 Complications: None Specimens: Endometrial curettings at 3105
[2017-01-13 15:57] LABS: ANTIHUMAN GLOB CROSSMATCH COMPAT
[2017-01-13] MEDS ORDERED: ESTROVEN MENOPAUSE PO (16:58)
[2017-01-13 18:57] LABS: HEMOGLOBIN 8.2 g/dL (12.2-16.2)
[2017-01-14 00:11] VITALS: BP 138/71
[2017-01-14 04:30] VITALS: BP 110/58
[2017-01-14 06:52] LABS: LYMPH # 1.9 K/mm3 (0.7-4.5); LYMPH % 20.8 % (10-50.0)
--- NOTE | 2017-01-14 06:55 | ACUTE CARE PROGRESS NOTE (QUA) ---
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 The patient underwent a fractional dilatation and curettage yesterday afternoon, with retrieval of a large amount of necrotic tissue. Her hemoglobin is stabilized at 8.2 g. She is eating and ambulating. She feels well and has had minimal bleeding since her surgery. I've given her instructions to take iron 3 times a day. She has an appointment scheduled with me in 4 days for follow-up. She may be discharged today at Dr. Craig' discretion. Assessment/Plan Problem List 1. Anemia due to blood loss, acute 2. Menorrhagia 3. Dysfunctional uterine bleeding This inpt stay is expected to cross 2 MNs from start of care Yes at 0676
--- NOTE | 2017-01-14 06:55 | ACUTE CARE PROGRESS NOTE (QUA) ---
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 The patient underwent a fractional dilatation and curettage yesterday afternoon, with retrieval of a large amount of necrotic tissue. Her hemoglobin is stabilized at 8.2 g. She is eating and ambulating. She feels well and has had minimal bleeding since her surgery. I've given her instructions to take iron 3 times a day. She has an appointment scheduled with me in 4 days for follow-up. She may be discharged today at Dr. Craig' discretion. Assessment/Plan Problem List 1. Anemia due to blood loss, acute 2. Menorrhagia 3. Dysfunctional uterine bleeding This inpt stay is expected to cross 2 MNs from start of care Yes at 0631
--- NOTE | 2017-01-14 07:50 | Discharge Summary ---
Demographics Admit date: 01/12/17 Discharge date: 01/14/17 Discharge diagnoses Problem List 1. Anemia due to blood loss, acute 2. Menorrhagia 3. Dysfunctional uterine bleeding History of present illness History of present illness 56-year-old female presented to the emergency department after being sent here by primary care providers at the [facility] when she was found to be anemic. Patient presented to that office with complaints of dizziness and weakness. She also endorsed 4 months of irregular vaginal bleeding. Sometimes bleeding for 2 days a time sometimes bleeding for 9 days at a time. On Wednesday of this week she reported heavy vaginal bleeding going through 9 tampons and pads in a four-hour period. She notes irregularity of periods began about a year ago. Patient does not take any medications. She has a history of multiple D and Cs for miscarriages. She has been admitted for transfusion and gynecology consultation. Patient was admitted and received 2 units of packed red blood cells on the . She continued to have intermittent episodes of light vaginal bleeding. Gynecology consult was performed and transvaginal ultrasound was also performed. Transvaginal ultrasound revealed a thickened endometrial stripe, uterine fibroids, RIGHT ovarian cyst. On January 13 patient was taken by Dr. Valladares to the Operating Room for dilatation and curettage. Procedure was successful. Patient reported light bleeding postprocedure. H and H remained stable. Patient was discharged home. She will follow-up with Dr. Valladares in 4 days. She will be taking iron 3 times per day Medications Medications: Discharge meds are as noted. Follow up Follow up in office in: 4 DAYS with: Mario Valladares MD at 0750
[2017-01-14] MEDS ORDERED: IRON90 MG PO (07:51)
[2017-01-14 08:17] VITALS: BP 115/66
[2017-01-14 08:47] VITALS: BP 115/66
== END 2017-01-14 08:50 | disposition home or self-care (01) | DRG 745 ==
LOC: ER 14:34 → 2ND 16:04 → ER 16:04 → 2ND 16:39
PROVIDERS: Emergency Medicine; Family Medicine; Obstetrics & Gynecology
PROC: 0UDB7ZX Extraction of Endometrium, Via Natural or Artificial Opening, Diagnostic (ICD-10-PCS; principal; 2017-01-13 14:30)
DX: N95.0 Postmenopausal bleeding (principal)
CPT/HCPCS: P9016

== ENCOUNTER → 2017-01-18 | Outpatient (CLI) | payer OTHER ==
[~2017-01-18] MED LIST: ESTROVEN MENOPAUSE PO; IRON90 MG PO; LUTEIN-ZEAXANT1 EACH PO; NATURAL B COMPL PO
== END ==
LOC: LAB 09:56
DX: R97.1 Elevated cancer antigen 125 [CA 125] (principal)

== ENCOUNTER → 2017-02-02 | Outpatient (CLI) | payer OTHER ==
[2017-02-02 10:44] LABS: URINE BILIRUBIN - DIPSTICK NEGATIVE (NEG); URINE BLOOD TRACE-INTACT (NEG)
[2017-02-02 12:06] LABS: URINE SQUAMOUS CELLS OCC #/hpf (0-5)
[2017-02-02 12:08] LABS: LYMPH # 2.1 K/mm3 (0.7-4.5); LYMPH % 26.5 % (10-50.0)
[2017-02-02 12:28] LABS: BUN 9 mg/dL (7-18)
[2017-02-02 12:29] LABS: GFR (ESTIMATED) 87 ML/MIN (59-)
== END ==
LOC: LAB 10:06
PROVIDERS: Obstetrics & Gynecology
DX: C54.9 Malignant neoplasm of corpus uteri, unspecified (principal); N95.0 Postmenopausal bleeding; Z01.812 Encounter for preprocedural laboratory examination